=== PATIENT | female | born 1955 | race Caucasian/White ===

== ENCOUNTER → 2016-03-28 | Outpatient (CLI) | payer OTHER, BC | LOC: HYPER 07:04 | DX: L89.213 Pressure ulcer of right hip, stage 3 (principal); G35 Multiple sclerosis; N31.8 Other neuromuscular dysfunction of bladder; I10 Essential (primary) hypertension; M81.0 Age-related osteoporosis without current pathological fracture; D50.9 Iron deficiency anemia, unspecified; F32.9 Major depressive disorder, single episode, unspecified; Z86.19 Personal history of other infectious and parasitic diseases; Z87.891 Personal history of nicotine dependence; Z72.89 Other problems related to lifestyle ==